=== PATIENT | female | born 1955 | race Caucasian/White ===

== ENCOUNTER 2017-02-09 22:32 | Emergency (ER) | payer OTHER ==
--- NOTE | 2017-02-09 22:59 | ERPHSYRPT ---
- History of Present Illness Time Seen by Provider: 02/09/17 22:37 Source: patient Exam Limitations: no limitations Physician History: ABOUT 1 HOUR AGO PT EXPERIENCED SUDDEN DIZZINESS(SPINNING AT FIRST THEN OFF- BALANCE) AND NAUSEA; DENIES FEVER, CHEST PAIN, VOMITING, ABDOMINAL PAIN, SHORTNESS OF AIR. Allergies/Adverse Reactions: Penicillins Allergy (Verified 02/09/17 22:53) Sulfa (Sulfonamide Antibiotics) Allergy (Verified 02/09/17 22:53) - Review of Systems Constitutional: No Fever Respiratory: No Dyspnea Cardiac: No Chest Pain Abdominal/Gastrointestinal: Nausea, No Abdominal Pain, No Vomiting Neurological: Dizziness, Vertigo All Other Systems: Reviewed and Negative - Nursing Vital Signs Nursing Vital Signs: Initial Vital Signs Temperature 98.4 F 02/09/17 22:38 Pulse Rate 61 02/09/17 22:38 Respiratory Rate 14 02/09/17 22:38 Blood Pressure 133/80 02/09/17 22:38 O2 Sat by Pulse Oximetry 98 02/09/17 22:38 Pain Scale Pain Intensity 0 - Physical Exam General Appearance: alert Eye Exam: PERRL/EOMI Ears, Nose, Throat Exam: TMs normal, pharynx normal, moist mucous membranes Neck Exam: normal inspection, full range of motion Respiratory Exam: lungs clear Cardiovascular Exam: normal heart sounds Gastrointestinal/Abdomen Exam: soft, normal bowel sounds Back Exam: normal range of motion Extremity Exam: normal inspection, No pedal edema Neurologic Exam: alert, cooperative, 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, normal mood/ affect, sensation nml, No motor deficits Skin Exam: warm, dry - Course Nursing assessment & vital signs reviewed: Yes EKG Interpreted by Me: RATE (56), Sinus T[place], NORMAL AXIS, NORMAL INTERVALS - Radiology Exams Chest X-ray Interpretation: Interpreted by me, No Pneumonia Ordered Tests: Active Orders 24 hr Category Date Time Status Controller Operations And Hr Manager STAT Care 02/09/17 23:01 Active Clean Catch Urine Specimen STAT Care 02/09/17 23:00 Active EKG-ER Only STAT Care 02/09/17 23:00 Active IV Insertion STAT Care 02/09/17 23:00 Active CHEST 2 VIEWS (PA AND LAT) Stat Exams 02/09/17 23:01 Ordered HEAD WITHOUT CONTRAST [CT] Stat Exams 02/09/17 23:01 Ordered AMYLASE Stat Lab 02/09/17 23:04 Completed CBC W DIFF Stat Lab 02/09/17 23:04 Completed CMP Stat Lab 02/09/17 23:04 Completed LIPASE Stat Lab 02/09/17 23:04 Completed MAGNESIUM Stat Lab 02/09/17 23:04 Completed TROPONIN Q3H Lab 02/09/17 23:15 Completed TROPONIN Q3H Lab 02/10/17 02:15 Ordered TROPONIN Q3H Lab 02/10/17 05:15 Ordered TROPONIN Q3H Lab 02/10/17 08:15 Ordered TROPONIN Q3H Lab 02/10/17 11:15 Ordered UA W/RFX UR CULTURE Stat Lab 02/09/17 23:01 Ordered Urine Triage Profile Stat Lab 02/09/17 23:01 Ordered Medication Summary Generic Name Dose Route Start Last Admin Trade Name Freq PRN Reason Stop Dose Admin Sodium Chloride 1,000 mls @ 100 mls/hr 02/09/17 23:00 02/09/17 23:10 Sodium Chloride 0.9% 1000 Ml IV 03/11/17 22:59 100 mls/hr .Q10H VISHNU Administration Discontinued Medications Generic Name Dose Route Start Last Admin Trade Name Freq PRN Reason Stop Dose Admin Promethazine HCl 12.5 mg 02/09/17 23:00 02/09/17 23:13 Phenergan 25 Mg Inj IV 02/09/17 23:01 12.5 mg STAT ONE Administration Promethazine HCl Confirm 02/09/17 23:07 Phenergan 25 Mg Inj Administered 02/09/17 23:08 Dose 25 mg .ROUTE .[employer] ONE Lab/Rad Data: Laboratory Result Diagrams 02/09/17 23:04 02/09/17 23:04 Laboratory Results 02/09/17 02/09/17 02/09/17 Range/Units 23:15 23:04 23:04 WBC (4.0-10.5) K/mm3 RBC (4.1-5.4) M/mm3 Hgb (12.0-16.0) gm/dl Hct (35-47) % MCV (78-100) fl MCH (26-32) pg MCHC (32-36) g/dl RDW (11.5-14.0) % MPV (6-9.5) fl Gran % (36.0-66.0) % Lymphocytes % (24.0-44.0) % Monocytes % (0.0-12.0) % Eosinophils % (0.00-5.0) % Basophils % (0.0-0.4) % Basophils # (0-0.4) Sodium 140 (136-145) mEq/L Potassium 3.7 (3.5-5.1) mEq/L Chloride 104 (98-107) mEq/L Carbon Dioxide 28.0 (21-32) mEq/L Anion Gap 11.8 (5-15) MEQ/L BUN 13 (9-20) mg/dL Creatinine 0.90 (0.55-1.30) mg/dl Estimated GFR > 60 ML/MIN Glucose 110 (70-110) MG/DL Calcium 9.2 (8.5-10.1) mg/dL Magnesium 2.0 (1.8-2.4) mg/dL Total Bilirubin 0.30 (0.2-1.0) mg/dL AST 18 (15-37) U/L ALT 24 (12-78) U/L Alkaline Phosphatase 43 L (46-116) U/L Troponin I < 0.017 (0.000-0.056) ng/ml Serum Total Protein 7.7 (6.4-8.2) gm/dL Albumin 4.0 (3.4-5.0) g/dL Amylase 45 (25-115) U/L Lipase 115 (73-393) U/L 02/09/17 Range/Units 23:04 WBC 6.8 (4.0-10.5) K/mm3 RBC 4.50 (4.1-5.4) M/mm3 Hgb 13.0 (12.0-16.0) gm/dl Hct 40.5 (35-47) % MCV 90.0 (78-100) fl MCH 28.9 (26-32) pg MCHC 32.1 (32-36) g/dl RDW 13.5 (11.5-14.0) % MPV 14.7 H (6-9.5) fl Gran % 47.7 (36.0-66.0) % Lymphocytes % 39.6 (24.0-44.0) % Monocytes % 8.9 (0.0-12.0) % Eosinophils % 3.2 (0.00-5.0) % Basophils % 0.6 (0.0-0.4) % Basophils # 0.04 (0-0.4) Sodium (136-145) mEq/L Potassium (3.5-5.1) mEq/L Chloride (98-107) mEq/L Carbon Dioxide (21-32) mEq/L Anion Gap (5-15) MEQ/L BUN (9-20) mg/dL Creatinine (0.55-1.30) mg/dl Estimated GFR ML/MIN Glucose (70-110) MG/DL Calcium (8.5-10.1) mg/dL Magnesium (1.8-2.4) mg/dL Total Bilirubin (0.2-1.0) mg/dL AST (15-37) U/L ALT (12-78) U/L Alkaline Phosphatase (46-116) U/L Troponin I (0.000-0.056) ng/ml Serum Total Protein (6.4-8.2) gm/dL Albumin (3.4-5.0) g/dL Amylase (25-115) U/L Lipase (73-393) U/L - Departure Time of Disposition: 00:01 Departure Disposition: Home Clinical Impression: DIZZINESS Condition: Stable Critical Care Time: No Referrals: ANAYELI SANTIAGO [Primary Care Provider] - Instructions: Vertigo Additional Instructions: FOLLOW UP WITH PRIVATE DOCTOR TOMORROW. Prescriptions: Meclizine HCl 25 mg [Antivert 25 mg] 25 mg PO Q8H PRN PRN #30 tablet PRN Reason: Dizziness
[2017-02-09] MEDS ORDERED: Phenergan 25 MG INJ IV ONE (23:00)
[2017-02-09] MEDS ORDERED: Sodium Chloride 0.9% 1000 ML 1,000 ML IV SCH (23:00)
[2017-02-09] MEDS ORDERED: Phenergan 25 MG INJ ONE (23:07)
[2017-02-09] MEDS ORDERED: Sodium Chloride 0.9% 1000 ML 1,000 ML ONE (23:07)
[2017-02-09 23:22] LABS: LIPASE 115 U/L (73-393)
[2017-02-09 23:23] LABS: ALKALINE PHOSPHATASE 43 U/L (46-116); ANION GAP 11.8 MEQ/L (5-15); BLOOD UREA NITROGEN 13 mg/dL (9-20); CHLORIDE 104 mEq/L (98-107); Glucose 110 MG/DL (70-110); Potassium 3.7 mEq/L (3.5-5.1); SGOT/AST 18 U/L (15-37); SGPT/ALT 24 U/L (12-78); SODIUM 140 mEq/L (136-145); Total Protein 7.7 gm/dL (6.4-8.2)
[2017-02-09 23:28] LABS: BASOPHIL % 0.6 % (0.0-0.4); Eosinophil % 3.2 % (0.00-5.0); Granulocytes % 47.7 % (36.0-66.0); Lymphocytes % 39.6 % (24.0-44.0); Mean Corpuscular Hemoglobin 28.9 pg (26-32); Mean Platelet Volume 14.7 fl (6-9.5); Monocytes % 8.9 % (0.0-12.0); Red Cell Distribution Width 13.5 % (11.5-14.0); White Blood Count 6.8 K/mm3 (4.0-10.5)
[2017-02-10 00:06] VITALS: BP 143/79; PULSE 68; O2SAT 96
[2017-02-10 00:28] LABS: Platelet Count 51 K/mm3 (150-450)
--- NOTE | 2017-02-10 08:55 | XRAY ---
Indication: Dizziness. Multiple contiguous axial images obtained through the head without contrast. Comparison: None Normal appearing brain parenchyma, ventricles, and bony calvarium. Visualized paranasal sinuses and mastoid air cells are clear. Impression: Normal CT head without contrast exam. Comment: Preliminary interpretation was made by [facility]. No discrepancy. CT DI 68.65
--- NOTE | 2017-02-10 08:59 | XRAY ---
Indication: Dizziness. Comparison: None AP/lateral chest demonstrates normal heart and lungs. Bony thorax intact.
== END 2017-02-10 00:18 | disposition home or self-care (01) ==
LOC: ED 22:32
DX: R42 Dizziness and giddiness (principal); R11.0 Nausea
CPT/HCPCS: 36000; 36415; 70450; 71020; 80053; 82150; 83690; 83735; 84484; 85025; 93005; 93041; 96360; 96374; 99284; J2550

== ENCOUNTER 2024-04-28 03:28 | Emergency (ER) | payer BC ==
--- NOTE | 2024-04-28 03:54 | ERPHSYRPT ---
- History of Present Illness Time Seen by Provider: 04/28/24 03:40 Source: patient, family Exam Limitations: no limitations Physician History: This is a right-handed 68-year-old white female patient who presents to the emergency department by private vehicle escorted by her spouse after sustaining a fall from a standing position when she took her dog outside to relieve itself. The dog pulled her down and she fell onto her right outstretched hand. She presents with skin tears to her right hand, right hand pain, right wrist pain and no bony pain in the right forearm but dorsal aspect hematoma. Patient is not on any anticoagulation therapy. Her tetanus status is up-to-date performed in 2019. Patient did not hit her head and there was no loss of consciousness. Occurred: just prior to arrival Reason for Fall: fell from standing pos Injuries/Pain Location: upper extremity (Right hand wrist and forearm) Loss of Consciousness: no loss of consciousness Allergies/Adverse Reactions: Penicillins Allergy (Verified 04/28/24 03:58) Sulfa (Sulfonamide Antibiotics) Allergy (Verified 04/28/24 03:58) Home Medications: No Reportable Medications [No Reported Medications] 04/28/24 [History] Hx Tetanus, Diphtheria Vaccination/Date Given: No Hx Influenza Vaccination/Date Given: No Hx Pneumococcal Vaccination/Date Given: No Travel Risk - International Travel Have you traveled outside of the country in past 3 weeks: No - Emerging Infectious Disease Are you exhibiting symptoms associated with any current EIDs: No - Review of Systems Constitutional: No Symptoms Eyes: No Symptoms Ears, Nose, & Throat: No Symptoms Respiratory: No Symptoms Cardiac: No Symptoms Abdominal/Gastrointestinal: No Symptoms Genitourinary Symptoms: No Symptoms Musculoskeletal: Fall, Injury (Right hand, wrist and forearm) Skin: Other (Skin tears right hand and subcutaneous hematoma mid dorsal aspect right forearm) Neurological: No Symptoms Psychological: No Symptoms Endocrine: No Symptoms Hematologic/Lymphatic: No Symptoms Immunological/Allergic: No Symptoms All Other Systems: Reviewed and Negative - Past Medical History Pertinent Past Medical History: No - Past Surgical History Past Surgical History: Yes Gastrointestinal: Cholecystectomy - Social History Smoking Status: Current every day smoker How long have you smoked: yrs Exposure to second hand smoke: Yes Drug Use: none Patient Lives Alone: No - Nursing Vital Signs Nursing Vital Signs: Initial Vital Signs Temperature 97.3 F 04/28/24 03:33 Pulse Rate 94 H 04/28/24 03:33 Respiratory Rate 18 04/28/24 03:33 Blood Pressure 140/79 04/28/24 03:33 O2 Sat by Pulse Oximetry 99 04/28/24 03:33 Pain Scale Pain Intensity 8 - [place] Coma Score Best Eye Response (Daron): (4) open spontaneously Best Verbal Response ([place]): (5) oriented Best Motor Response ([place]): (6) obeys commands [place] Total: 15 - Physical Exam General Appearance: no apparent distress, alert, anxiety, thin Head Injury: no evidence of injury Eye Exam: PERRL/EOMI, eyes nml inspection ENT Exam: airway nml, nml ext.inspection Neck Exam: supple, trachea midline, full range of motion, normal alignment Respiratory/Chest Exam: No chest tenderness, No respiratory distress Gastrointestinal Exam: No tenderness Rectal Exam: not done Back Exam: normal inspection, normal range of motion, No CVA tenderness Extremity Exam: normal range of motion, pelvis stable, evidence of injury (Right hand and right forearm), tenderness (Right hand, right wrist and right forearm), other (Right hand with multiple skin tears. 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, normal mood/affect, nml cerebellar function, nml station & gait, sensation nml Skin Exam: normal color, warm, dry, other (See above extremity section description) SpO2 Interpretation: normal O2 Delivery: Room Air - Course Nursing assessment & vital signs reviewed: Yes Ordered Tests: Active Orders 24 hr Category Date Time Status HAND (MINIMUM 3 VIEWS) Stat Exams 04/28/24 04:02 Taken WRIST (MIN 3 VIEWS) Stat Exams 04/28/24 04:02 Taken - Progress Progress: improved Progress Note: 04/28/24 03:55 My medical decision making and the assignment of low complexity to this patient's medical issue today is based on review of the patient's past medical history, review the patient's medication list, review the patient drug allergy list, history present illness and physical findings on examination. The workup in this patient includes x-ray of the patient's right hand and right wrist. Patient declines x-ray of the right forearm. Differential diagnosis includes but is not limited to skin tears, acute fracture and/or dislocation of patient's right hand and/or wrist 04/28/24 04:11 I interpreted the preliminary reports of the following x-rays: X-ray of the right wrist shows no acute fracture or dislocation. X-ray of the right hand shows degenerative changes but no acute fracture or dislocation Counseled pt/family regarding: diagnosis, need for follow-up, rad results Medical Desision Making - Independent Historian Additional History obtained from: Spouse - Diagnostic Testing Diagnostic test were ordered, analyzed, and reviewed by me: Yes Radiological Interpretation: Interpreted by me - Risk of complications Minimal Risk: Minimal risk of morbidity - Departure Departure Disposition: Home Clinical Impression: Fall with no significant injury, Skin tear of right hand without complication, Traumatic hematoma of right forearm Condition: Stable Critical Care Time: No Referrals: DANIEL DE LUNA PLUMBER APPRENTICE [Primary Care Provider] - Follow up/PCP as directed Additional Instructions: Skin tear instructions per emergency room nurse. Ice pack to all tender and swollen areas 3-4 times a day for the next 2 to 3 days. Use Tylenol and ibuprofen for pain control. Indra wrap to the right forearm for compression. Call your primary care provider today, to arrange a follow-up appointment to be seen in the next 3 to 5 days.
[2024-04-28 03:58] VITALS: TEMP 97.3
[2024-04-28 04:42] VITALS: BP 122/75; PULSE 82; RESP 16; O2SAT 97
--- NOTE | 2024-04-28 09:02 | XRAY ---
Indication: Pain following fall. Comparison: None 3 view right wrist demonstrates osteopenia and mild 1st metacarpal multangular degenerative changes. No other bony, articular, or soft tissue abnormalities.
--- NOTE | 2024-04-28 09:04 | XRAY ---
Indication: Pain following fall. Comparison: None 3 view right hand demonstrates osteopenia, minimal degenerative changes all IP joints, and mild 1st metacarpal multangular degenerative changes. No other bony, articular, or soft tissue abnormalities.
== END 2024-04-28 04:49 | disposition home or self-care (01) ==
LOC: ED 03:28
DX: S50.11XA Contusion of right forearm, initial encounter (principal); S61.411A Laceration without foreign body of right hand, initial encounter; W01.0XXA Fall on same level from slipping, tripping and stumbling without subsequent striking against object, initial encounter; Y93.K9 Activity, other involving animal care; M79.641 Pain in right hand; M25.531 Pain in right wrist; Z72.0 Tobacco use
CPT/HCPCS: 73110; 73130; 99282; 99283